=== PATIENT | female | born 1975 | race Caucasian/White ===

== ENCOUNTER 2019-04-29 11:48 | Day surgery (SDC) | payer OTHER ==
[2019-04-28 10:39] VITALS: BMI 46.5
[~2019-04-29 11:48] MED LIST: Dexamethasone 20 MG/5 ML VIAL ONE; Lidocaine 1% PF 5 ML VIAL ONE; Ondansetron PF 4 MG/2 ML Vial ONE; PROPOFOL 200 MG/20 ML VIAL ONE
--- NOTE | 2019-04-29 15:34 | OP ---
DATE OF PROCEDURE: 04/29/2019 PROCEDURE PERFORMED: Colonoscopy with snare polypectomy and biopsy. PREPROCEDURE DIAGNOSIS: Hematochezia. POSTPROCEDURE DIAGNOSES: 1. Exam to cecum; good bowel preparation. 2. Two diminutive sessile polyps in the proximal sigmoid colon, excised with cold biopsy forceps. 3. 7 to 8 mm sessile polyp in the mid sigmoid colon, removed by hot snare polypectomy. 4. Small internal nonbleeding internal hemorrhoids and hypertrophied anal papilla. 5. Small perianal skin tag. 6. Otherwise, normal colonoscopy. PROCEDURE IN DETAIL: Written informed consent was obtained. The patient was brought to the endoscopy suite. Total intravenous anesthesia was provided by Kriss Lawson CRNA. The patient was placed in the left lateral decubitus position. A digital rectal exam was performed that revealed several small perianal skin tags. Sphincter tone was normal. A Pentax videocolonoscope was inserted through the anal canal and advanced under direct visualization to the cecum. Position in the cecum was verified by clear identification of the appendiceal orifice and the ileocecal valve. The quality of the bowel preparation was good. Each colon segment was examined carefully as the colonoscope was slowly withdrawn from the cecum. Vascular pattern and haustral folds appeared normal. In the proximal sigmoid colon, two diminutive sessile polyps, each measuring 2 mm in diameter were identified and removed by cold biopsy forceps. A third sigmoid colon polyp located in the mid sigmoid was also identified. This polyp measured approximately 7 to 8 mm in diameter and was removed by hot snare electrocautery. Good hemostasis was verified post polypectomy. A retroflexed exam in the rectum demonstrated several small nonbleeding internal hemorrhoids and a few hypertrophied anal papilla. The colon was decompressed as the colonoscope was removed from the patient. She was transferred to the Day Stay surgery area for postprocedure monitoring. There were no immediate complications. RECOMMENDATIONS: 1. Await pathology results. 2. Ask the patient to call me in 1 week for pathology results. 3. Resume previous diet and medications. 4. Fiber supplement daily, Metamucil or Citrucel 2 teaspoons or 2 capsules with 8 ounces of water. 5. Colace stool softener 100 mg 1 to 2 daily as needed. 6. Continue Analpram HC 2.5% cream as previously prescribed. 7. Repeat colonoscopy in 5 years. 8. Follow up in [facility] in 3 to 4 weeks. Job ID: [id number]
== END 2019-04-29 15:32 | disposition home or self-care (01) ==
LOC: SDC 11:48
PROVIDERS: ATTEND Internal Medicine Gastroenterology
PROC: 0DBN8ZX Excision of Sigmoid Colon, Via Natural or Artificial Opening Endoscopic, Diagnostic (ICD-10-PCS; principal; 2019-04-29)
PROC: 0DBN8ZZ Excision of Sigmoid Colon, Via Natural or Artificial Opening Endoscopic (ICD-10-PCS; principal; 2019-04-29)
DX: D12.5 Benign neoplasm of sigmoid colon (principal); K63.5 Polyp of colon; K64.4 Residual hemorrhoidal skin tags; K64.8 Other hemorrhoids; K60.2 Anal fissure, unspecified; K92.1 Melena; Z88.2 Allergy status to sulfonamides
CPT/HCPCS: 88305; J1100; J2001; J2405; J2704